=== PATIENT | female | born 1980 | race Caucasian/White ===

== ENCOUNTER 2016-09-20 12:17 | Emergency (ER) | payer MEDICARE, OTHER ==
[~2016-09-20] VITALS: Ht 167.6 cm; Wt 127.8 kg
[~2016-09-20 12:17] MED LIST: SPRI28TA PO
[2016-09-20 12:20] VITALS: BP 159/68; PULSE 68; RESP 18; TEMP 97.9; O2SAT 99
--- NOTE | 2016-09-20 12:59 | PD ---
HPI Chief Complaint: Oral / Dental Pain or Problem Time Seen by Provider: 12:55 Travel History International Travel<30 days: No Contact w/Intl Traveler<30days: No Traveled to known affect area: No History of Present Illness HPI 36-year-old female presents to the emergency room for evaluation of left upper dental pain for the past 3 days. Patient describes pain as throbbing. Worse with eating and drinking. She has applied several home remedies and taken over- the-counter medications without relief in symptoms. She does not have a dentist in the area. Denies drainage, fever, chills, nausea, vomiting. PFSH Past Medical History Medical History: Denies Significant Hx Hx Anticoagulant Therapy: No Cardiovascular Problems: No Chemotherapy: No Cerebrovascular Accident: No Diabetes: No Respiratory: No Tetanus Vaccination: < 5 Years Influenza Vaccination: No ?: Not LMP: Now : 3 Para: 2 Miscarriage: 1 Tubal Ligation: Yes (02/2014) Past Surgical History Section: Yes Gynecologic Surgery: Yes (bilateral tubal ligation) Social History Alcohol Use: No Tobacco Use: No Substance Use: No Allergies-Medications (Allergen,Severity, Reaction): Coded Allergies: Penicillin (Verified Allergy, Severe, Rash, 09/20/16) Reported Meds & Prescriptions Reported Meds & Active Scripts Active No Active Prescriptions or Reported Medications Review of Systems Except as stated in HPI: all other systems reviewed are Neg Physical Exam Narrative GENERAL: Well-nourished, well-developed female in no acute distress. Afebrile. Ambulatory SKIN: Warm and dry. HEAD: Normocephalic. EYES: No scleral icterus. No injection or drainage. DENTAL: No loose or chipped teeth. No malocclusion. Mild erythema with possible drainage of tooth #14. Mild decay throughout. No obvious abscess. No submental, submandibular, or focal induration. No facial edema. NECK: Supple, trachea midline. No JVD or lymphadenopathy. CARDIOVASCULAR: Regular rate and rhythm without murmurs, gallops, or rubs. RESPIRATORY: Breath sounds equal bilaterally. No accessory muscle use. Data Data Last Documented VS Vital Signs Date Time Temp Pulse Resp B/P Pulse Ox O2 Delivery O2 Flow Rate FiO2 09/20/16 12:20 97.9 68 18 159/68 99 MDM Medical Decision Making Medical Screen Exam Complete: Yes Emergency Medical Condition: Yes Medical Record Reviewed: Yes Differential Diagnosis Abscess versus dentalgia versus cavity Narrative Course 36-year-old female presents to the emergency room for evaluation of tooth pain in the left upper jaw for the past 3 days. No systemic signs of infection. Mild erythema with possible drainage of tooth #14. Mild decay throughout. No obvious abscess. No submental, submandibular, or focal induration. No facial edema. Patient given tramadol for pain in the emergency room. Discharged with prescription for clindamycin. Told to follow up with a dentist or return for worsening symptoms. She understands and agrees to plan. Diagnosis Primary Impression: Dental abscess Referrals: Dentist Patient Instructions: Dental Abscess (ED), General Instructions Additional Instructions: Rest and drink plenty of fluids. [place] your teeth twice daily. Take clindamycin as directed, until gone. Follow-up with a dentist. Return to the emergency room for worsening symptoms. Med/Other Pt SpecificInfo: Prescription(s) given Scripts No Active Prescriptions or Reported Meds Disposition: 01 DISCHARGE HOME Condition: Stable Cassandra Rivera September 20, 2016 12:59
[2016-09-20] MEDS ORDERED: traMADol HCL 50 MG TAB PO ONE (13:00)
[2016-09-20] MEDS ORDERED: CLIN1CAP5 PO (13:11)
== END 2016-09-20 13:35 | disposition home or self-care (01) ==
LOC: PHEFT 12:17
DX: K04.7 Periapical abscess without sinus (principal)
CPT/HCPCS: 99282

== ENCOUNTER 2016-10-17 17:38 | Emergency (ER) | payer MEDICARE, OTHER ==
[~2016-10-17] VITALS: Ht 167.6 cm; Wt 129.0 kg
[2016-10-17 17:41] VITALS: BP 163/87; PULSE 81; RESP 15; TEMP 98.1; O2SAT 100
[2016-10-17] MEDS ORDERED: SODIUM CHLOR 0.9% 1000 ML INJ 1,000 ML IV SCH (18:04)
[2016-10-17] MEDS ORDERED: ONDANSETRON HCL 4 MG/2 ML VIAL IVP ONE (18:15)
[2016-10-17] MEDS ORDERED: SODIUM CHLORIDE 0.9% FLUSH 10 ML FLUSH IV FLUSH PRN (18:15)
[2016-10-17] MEDS ORDERED: KETOROLAC TROMETHAMINE 30 MG/ML (IVP) VIAL IVP ONE (18:15)
--- NOTE | 2016-10-17 18:15 | PD ---
HPI Chief Complaint: Abdominal Pain Time Seen by Provider: 17:54 Travel History International Travel<30 days: No Contact w/Intl Traveler<30days: No Traveled to known affect area: No History of Present Illness HPI 36yo F with PMH of morbid obesity presents to the ED with c/o left lower abdominal pain for 3 days. States pain is sharp and relieved when lying down. However, pt is worst with standing and radiates to left back and down left proximal thigh. +Nausea. +Nonbloody diarrhea today. +Vaginal discharge that is white today. Denies any fever, trauma, chest pain, sob, vomiting, dysuria, hematuria, vaginal bleeding, urinary incontinence, focal weakness or numbness. Last bowel movement was today. PSH tubal ligation and . PFSH Past Medical History Hx Anticoagulant Therapy: No Cardiovascular Problems: No Chemotherapy: No Cerebrovascular Accident: No Diabetes: No Respiratory: No ?: Not : 3 Para: 2 Miscarriage: 1 Tubal Ligation: Yes (02/2014) Past Surgical History Section: Yes Gynecologic Surgery: Yes (bilateral tubal ligation) Social History Alcohol Use: No Tobacco Use: No Substance Use: No Allergies-Medications (Allergen,Severity, Reaction): Coded Allergies: Penicillin (Verified Allergy, Severe, Rash, 10/17/16) Reported Meds & Prescriptions Reported Meds & Active Scripts Active Zofran Odt (Ondansetron Odt) 4 Mg Tab 4 Mg SL Q12HR PRN Acetaminophen 500 Mg Tab 500 Mg PO Q6H PRN Macrobid (Nitrofurantoin Monoh/Nitrofur Macro) 100 Mg Cap 100 Mg PO BID 5 Days Review of Systems Except as stated in HPI: all other systems reviewed are Neg Physical Exam Narrative GENERAL: 36yo F in mild distress. SKIN: Focused skin assessment warm/dry. HEAD: Atraumatic. Normocephalic. CARDIOVASCULAR: Regular rate and rhythm. No murmur appreciated. RESPIRATORY: No accessory muscle use. Clear to auscultation. Breath sounds equal bilaterally. GASTROINTESTINAL: Abdomen soft, +TTP suprapubic, left to suprapubic region. No rebound tenderness or guarding. PELVIC: Clear, yellowish mucus discharge. No CMT or adnexal tenderness bilaterally. BACK: No CVA tenderness bilaterally. MUSCULOSKELETAL: No obvious deformities. No clubbing. No cyanosis. No edema. NEUROLOGICAL: Awake and alert. No obvious cranial nerve deficits. Motor grossly within normal limits. Sensation equal bilateral lower ext. Normal speech. Negative straight leg test. PSYCHIATRIC: Appropriate mood and affect; insight and judgment normal. Data Data Last Documented VS Vital Signs Date Time Temp Pulse Resp B/P Pulse Ox O2 Delivery O2 Flow Rate FiO2 10/17/16 19:51 66 16 141/77 100 10/17/16 18:28 Room Air 10/17/16 17:41 98.1 Orders Complete Blood Count With Diff (10/17/16 18:04) Comprehensive Metabolic Panel (10/17/16 18:04) Lipase (10/17/16 18:04) Prothrombin Time / Inr (Pt) (10/17/16 18:04) Act Partial Throm Time (Ptt) (10/17/16 18:04) Urinalysis - C+S If Indicated (10/17/16 18:04) Iv Access Insert/Monitor (10/17/16 18:04) Ecg Monitoring (10/17/16 18:04) Ondansetron Inj (Zofran Inj) (10/17/16 18:15) Sodium Chlor 0.9% 1000 Ml Inj (Ns 1000 M (10/17/16 18:04) Sodium Chloride 0.9% Flush (Ns Flush) (10/17/16 18:15) Ketorolac Inj (Toradol Inj) (10/17/16 18:15) Ed Urine Pregnancytest Poc (10/17/16 18:04) Gc And Chlamydia Pcr (10/17/16 18:15) Wet Prep Profile (10/17/16 18:15) Ed Poc Ultrasound (10/17/16 ) Labs Laboratory Tests Test 10/17/16 10/17/16 10/17/16 18:00 18:17 18:30 Urine Color YELLOW Urine Turbidity CLEAR Urine pH 7.0 Urine Specific [place] 1.018 Urine Protein NEG mg/dL Urine Glucose (UA) NEG mg/dL Urine Ketones NEG mg/dL Urine Occult Blood SMALL Urine Nitrite NEG Urine Bilirubin NEG Urine Leukocyte Esterase TRACE Microscopic Urinalysis Comment CULT NOT INDICATED White Blood Count 8.6 TH/MM3 Red Blood Count 3.89 MIL/MM3 Hemoglobin 10.0 GM/DL Hematocrit 30.9 % Mean Corpuscular Volume 79.3 FL Mean Corpuscular Hemoglobin 25.6 PG Mean Corpuscular Hemoglobin 32.3 % Concent Red Cell Distribution Width 12.2 % Platelet Count 271 TH/MM3 Mean Platelet Volume 8.2 FL Neutrophils (%) (Auto) 71.0 % Lymphocytes (%) (Auto) 20.0 % Monocytes (%) (Auto) 7.3 % Eosinophils (%) (Auto) 1.1 % Basophils (%) (Auto) 0.6 % Neutrophils # (Auto) 6.1 TH/MM3 Lymphocytes # (Auto) 1.7 TH/MM3 Monocytes # (Auto) 0.6 TH/MM3 Eosinophils # (Auto) 0.1 TH/MM3 Basophils # (Auto) 0.1 TH/MM3 CBC Comment DIFF FINAL Differential Comment Prothrombin Time 10.2 SEC Prothromb Time International 0.9 RATIO Ratio Activated Partial 25.2 SEC Thromboplast Time Sodium Level 141 MEQ/L Potassium Level 3.8 MEQ/L Chloride Level 109 MEQ/L Carbon Dioxide Level 26.8 MEQ/L Anion Gap 5 MEQ/L Blood Urea Nitrogen 10 MG/DL Creatinine 0.77 MG/DL Estimat Glomerular Filtration 85 ML/MIN Rate Random Glucose 104 MG/DL Calcium Level 7.9 MG/DL Total Bilirubin 0.3 MG/DL Aspartate Amino Transf 19 U/L (AST/SGOT) Alanine Aminotransferase 26 U/L (ALT/SGPT) Alkaline Phosphatase 78 U/L Total Protein 6.8 GM/DL Albumin 3.3 GM/DL Lipase 238 U/L Clue Cells (Wet Prep) NONE SEEN Vaginal Trichomonas (Wet Prep) NONE SEEN Vaginal Yeast (Wet Prep) NONE SEEN MDM Medical Decision Making Medical Screen Exam Complete: Yes Emergency Medical Condition: Yes Interpretation(s) Vital Signs Date Time Temp Pulse Resp B/P Pulse Ox O2 Delivery O2 Flow Rate FiO2 10/17/16 18:28 54 18 138/74 99 Room Air 10/17/16 17:41 98.1 81 15 163/87 100 Laboratory Tests Test 10/17/16 10/17/16 10/17/16 18:00 18:17 18:30 Urine Color YELLOW (YELLW/STRAW) Urine Turbidity CLEAR (CLEAR) Urine pH 7.0 (5.0-8.5) Urine Specific [place] 1.018 (1.002-1.035) Urine Protein NEG mg/dL (NEG-TRACE) Urine Glucose (UA) NEG mg/dL (NEG) Urine Ketones NEG mg/dL (NEG) Urine Occult Blood SMALL (NEG) Urine Nitrite NEG (NEG) Urine Bilirubin NEG (NEG) Urine Leukocyte Esterase TRACE (NEG) White Blood Count 8.6 TH/MM3 (4.0-11.0) Red Blood Count 3.89 MIL/MM3 (4.00-5.30) Hemoglobin 10.0 GM/DL (11.6-15.3) Hematocrit 30.9 % (35.0-46.0) Mean Corpuscular Volume 79.3 FL (80.0-100.0) Mean Corpuscular Hemoglobin 25.6 PG (27.0-34.0) Mean Corpuscular Hemoglobin 32.3 % Concent (32.0-36.0) Red Cell Distribution Width 12.2 % (11.6-17.2) Platelet Count 271 TH/MM3 (150-450) Mean Platelet Volume 8.2 FL (7.0-11.0) Neutrophils (%) (Auto) 71.0 % (16.0-70.0) Lymphocytes (%) (Auto) 20.0 % (9.0-44.0) Monocytes (%) (Auto) 7.3 % (0.0-8.0) Eosinophils (%) (Auto) 1.1 % (0.0-4.0) Basophils (%) (Auto) 0.6 % (0.0-2.0) Neutrophils # (Auto) 6.1 TH/MM3 (1.8-7.7) Lymphocytes # (Auto) 1.7 TH/MM3 (1.0-4.8) Monocytes # (Auto) 0.6 TH/MM3 (0-0.9) Eosinophils # (Auto) 0.1 TH/MM3 (0-0.4) Basophils # (Auto) 0.1 TH/MM3 (0-0.2) CBC Comment DIFF FINAL Differential Comment Prothrombin Time 10.2 SEC (9.8-11.6) Prothromb Time International 0.9 RATIO Ratio Activated Partial 25.2 SEC Thromboplast Time (24.3-30.1) Sodium Level 141 MEQ/L (136-145) Potassium Level 3.8 MEQ/L (3.5-5.1) Chloride Level 109 MEQ/L (98-107) Carbon Dioxide Level 26.8 MEQ/L (21.0-32.0) Anion Gap 5 MEQ/L (5-15) Blood Urea Nitrogen 10 MG/DL (7-18) Creatinine 0.77 MG/DL (0.50-1.00) Estimat Glomerular Filtration 85 ML/MIN (>89) Rate Random Glucose 104 MG/DL (74-106) Calcium Level 7.9 MG/DL (8.5-10.1) Total Bilirubin 0.3 MG/DL (0.2-1.0) Aspartate Amino Transf 19 U/L (15-37) (AST/SGOT) Alanine Aminotransferase 26 U/L (10-53) (ALT/SGPT) Alkaline Phosphatase 78 U/L (45-117) Total Protein 6.8 GM/DL (6.4-8.2) Albumin 3.3 GM/DL (3.4-5.0) Lipase 238 U/L (73-393) Clue Cells (Wet Prep) NONE SEEN (NONE) Vaginal Trichomonas (Wet Prep) NONE SEEN (NONE) Vaginal Yeast (Wet Prep) NONE SEEN (NONE) Differential Diagnosis Nephrolithiasis vs. pyelonephritis vs. ovarian cyst vs. diverticulitis vs. UTI vs. bacterial vaginosis vs. viral syndrome Narrative Course 36yo F presents to the ED with c/o left lower abdominal pain that radiates to left back. On physical exam, pain is more suprapubic and left of suprapubic region. Labs reviewed, no leukocytosis. H/H low at 10/30.9. Pt has been having prolong menstrual bleeding that has recently stopped and this may be due to that. Creatinine normal. LFT and lipase normal. Wet prep negative. UA showed small occult blood and trace leukocyte. Since pt has suprapubic tenderness, will treat as UTI. Pt given zofran and toradol and reevaluated at bedside. States nausea and pain has resolved. Pt may have had a kidney stone or UTI. US bedside did not show any obstructions in bilateral kidneys. Pt does not want to wait for a transvaginal US to r/o ovarian cysts. States she has appointment with her [facility] as outpatient. Pt tolerating PO. Return precautions given. Procedures Procedure Narrative Emergency department urinary tract ultrasound was performed with patient consent. Curvilinear probe was used in the transverse and sagittal views in the bilateral flank and suprapubic region without evidence of hydronephrosis or urinary retention. Diagnosis Primary Impression: UTI (urinary tract infection) Qualified Code: N39.0 - Urinary tract infection with hematuria, site unspecified Patient Instructions: General Instructions Departure Forms: Tests/Procedures Additional Instructions: Please follow up with your PMD or [facility] in 1-2 days. Return to the ED if symptoms worsen. Med/Other Pt SpecificInfo: Prescription(s) given Scripts Ondansetron Odt (Zofran Odt)4 Mg Tab4 Mg SL Q12HR PRN (Nausea/Vomiting) #6 TAB Ref 0 Prov:Shahida Montoya DO 10/17/16 Acetaminophen 500 Mg [id number] Mg PO Q6H PRN (PAIN SCALE 1 TO 4) #20 TAB Ref 0 Prov:Shahida Montoya DO 10/17/16 Nitrofurantoin Monohydrate Macrocrystals (Macrobid)100 Mg [id number] Mg PO BID 5 Days Ref 0 Prov:Shahida Montoya DO 10/17/16 Shahida Montoya DO Oct 17, 2016 18:15
[2016-10-17 18:26] LABS: AUTOMATED NEUTROPHIL # 6.1 TH/MM3 (1.8-7.7); BASOPHIL # 0.1 TH/MM3 (0-0.2); BASOPHIL % 0.6 % (0.0-2.0); EOSINOPHIL # 0.1 TH/MM3 (0-0.4); EOSINOPHIL % 1.1 % (0.0-4.0); HEMATOCRIT 30.9 % (35.0-46.0); HEMO FLAGS DIFF FINAL; LYMPHOCYTE # 1.7 TH/MM3 (1.0-4.8); MEAN CELL VOLUME 79.3 FL (80.0-100.0); MEAN CORPUSCULAR HEMOGLOBIN 25.6 PG (27.0-34.0); MEAN CORPUSCULAR HGB CONC 32.3 % (32.0-36.0); MONO % 7.3 % (0.0-8.0); PLATELET COUNT 271 TH/MM3 (150-450); RED BLOOD COUNT 3.89 MIL/MM3 (4.00-5.30); RED CELL DISTRIBUTION WIDTH 12.2 % (11.6-17.2); WHITE BLOOD COUNT 8.6 TH/MM3 (4.0-11.0)
[2016-10-17 18:28] VITALS: BP 138/74; PULSE 54; RESP 18; O2SAT 99
[2016-10-17 18:34] LABS: CHLORIDE 109 MEQ/L (98-107); POTASSIUM 3.8 MEQ/L (3.5-5.1); SODIUM (NA) 141 MEQ/L (136-145)
[2016-10-17 18:36] LABS: BLOOD, URINE SMALL (NEG); GLUCOSE,URINE NEG (NEG); KETONE, URINE NEG (NEG); NITRITE,URINE NEG (NEG)
[2016-10-17 18:38] LABS: ANION GAP 5 MEQ/L (5-15); BICARBONATE 26.8 MEQ/L (21.0-32.0)
[2016-10-17 18:39] LABS: BLOOD UREA NITROGEN 10 MG/DL (7-18)
[2016-10-17 18:40] LABS: APTT (PATIENT) 25.2 SEC (24.3-30.1); INTERNATIONAL NORMALIZED RATIO 0.9 RATIO; PROTHROMBIN TIME - PATIENT 10.2 SEC (9.8-11.6)
[2016-10-17 18:41] LABS: ALT (GPT) 26 U/L (10-53); AST (GOT) 19 U/L (15-37)
[2016-10-17 18:42] LABS: GLOMERULAR FILTRATION RATE 85 ML/MIN (>89)
[2016-10-17 18:43] LABS: TOTAL BILIRUBIN ADULT 0.3 MG/DL (0.2-1.0)
[2016-10-17 18:44] LABS: ALKALINE PHOSPHATASE 78 U/L (45-117)
[2016-10-17 19:01] LABS: URINE COLOR YELLOW (YELLW/STRAW)
[2016-10-17] MEDS ORDERED: ACET500T3 PO (19:40)
[2016-10-17] MEDS ORDERED: ZOFR4TAB3 SL (19:40)
[2016-10-17] MEDS ORDERED: MACR100C2 PO (19:40)
[2016-10-17 19:50] VITALS: RESP 15
[2016-10-17 19:51] VITALS: BP 141/77
[2016-10-17 21:22] LABS: COMMENT (UR) CULT NOT INDICATED; CULTURE IF INDICATED CULT NOT INDICATED
[2016-10-18 02:08] LABS: CHLAMYDIA PCR NOT DETECTED (NOT DETECT); NEISSERIA PCR NOT DETECTED (NOT DETECT)
== END 2016-10-17 20:06 | disposition home or self-care (01) ==
LOC: PHED 17:38
DX: N39.0 Urinary tract infection, site not specified (principal); R31.9 Hematuria, unspecified
CPT/HCPCS: 80053; 81001; 83690; 84703; 85025; 85610; 85730; 87210; 87491; 87591; 96361; 96374; 96375; 99284; J1885; J2405; J7030

== ENCOUNTER 2016-11-28 13:11 | Emergency (ER) | payer MEDICARE, OTHER ==
[~2016-11-28] VITALS: Ht 167.6 cm; Wt 131.4 kg
[~2016-11-28 13:11] MED LIST changes: +ACET500T3 PO; +MACR100C2 PO; -SPRI28TA PO; +ZOFR4TAB3 SL
[2016-11-28 13:20] VITALS: BP 119/76; PULSE 84; RESP 18; TEMP 98.2; O2SAT 99
--- NOTE | 2016-11-28 13:44 | PD ---
Physical Exam Time Seen by Provider: 13:42 Narrative 36 y/o female here with R knee pain after a fall. Vital signs reviewed. Seen at triage desk. Awaiting bed placement. Data Data Last Documented VS Vital Signs Date Time Temp Pulse Resp B/P Pulse Ox O2 Delivery O2 Flow Rate FiO2 11/28/16 13:20 98.2 84 18 119/76 99 Room Air [facility] Medical Record Reviewed: Yes Supervised Visit with BETH: No Fredrick Flores Nov 28, 2016 13:44
--- NOTE | 2016-11-28 14:56 | PD ---
HPI Chief Complaint: Injury Time Seen by Provider: 14:56 Travel History International Travel<30 days: No Contact w/Intl Traveler<30days: No Traveled to known affect area: No History of Present Illness HPI 36-year-old female presents to emergency department for evaluation right knee pain. Patient had a trip and fall on the stairs, landing directly on her right knee. Reports moderate anterior right knee pain, rating it a 6 out of 10. Pain is exacerbated with flexion. No alteration to sensation. She did not strike her head or lose consciousness. No other symptoms to report. She has taken 2 Aleve prior to arrival. PFS Past Medical History Hx Anticoagulant Therapy: No Cardiovascular Problems: No Chemotherapy: No Cerebrovascular Accident: No Diabetes: No Diminished Hearing: No Respiratory: No Immunizations Current: Yes ?: Not LMP: 11/28/16 : 3 Para: 2 Miscarriage: 1 Dilation and Curettage (D&C): Yes Tubal Ligation: Yes (02/2014) Past Surgical History Section: Yes Gynecologic Surgery: Yes (bilateral tubal ligation) Oral Surgery: Yes (TOOTH) Social History Alcohol Use: No Tobacco Use: No Substance Use: No Allergies-Medications (Allergen,Severity, Reaction): Coded Allergies: Penicillin (Verified Allergy, Severe, Rash, 11/28/16) Reported Meds & Prescriptions Reported Meds & Active Scripts Active Zofran Odt (Ondansetron Odt) 4 Mg Tab 4 Mg SL Q12HR PRN Acetaminophen 500 Mg Tab 500 Mg PO Q6H PRN Macrobid (Nitrofurantoin Monoh/Nitrofur Macro) 100 Mg Cap 100 Mg PO BID 5 Days Review of Systems Except as stated in HPI: all other systems reviewed are Neg Physical Exam Narrative GENERAL: Well-nourished, well-developed female patient, ambulatory no acute distress SKIN: Focused skin assessment warm/dry. Abrasion on the anterior right knee HEAD: Normocephalic. EYES: No scleral icterus. No injection or drainage. NECK: Supple, trachea midline. No JVD or lymphadenopathy. CARDIOVASCULAR: Regular rate and rhythm without murmurs, gallops, or rubs. RESPIRATORY: Breath sounds equal bilaterally. No accessory muscle use. MUSCULOSKELETAL: No cyanosis, or edema. Patient has full flexion-extension the right knee. Reports pain with palpation of the patella of the right knee. No obvious deformities. BACK: Nontender without obvious deformity. No CVA tenderness. Data Data Last Documented VS Vital Signs Date Time Temp Pulse Resp B/P Pulse Ox O2 Delivery O2 Flow Rate FiO2 11/28/16 13:20 98.2 84 18 119/76 99 Room Air Orders Knee, Complete (4vws) (11/28/16 ) MDM Medical Decision Making Medical Screen Exam Complete: Yes Emergency Medical Condition: Yes Medical Record Reviewed: Yes Differential Diagnosis Contusion versus fracture versus sprain versus dislocation Narrative Course 36 year female presents to emergency department for evaluation right knee injury. Patient appears without distress. The right knee is without deformity. Patient reports pain with palpation of the anterior aspect of the right knee. X-ray imaging is ordered. Patient treated for pain prior to arrival. X-ray imaging is without acute concern. She'll be discharged home with pain control. She agrees to return immediately with any acute worsening of symptoms. Diagnosis Primary Impression: Right knee injury Qualified Code: S89.91XA - Right knee injury, initial encounter Referrals: Primary Care Physician Patient Instructions: General Instructions, Knee Pain (ED) Additional Instructions: Ice and elevate to reduce pain [place] wrap for compression and comfort Follow-up with the primary care provider Return immediately with any acute worsening symptoms Med/Other Pt SpecificInfo: Prescription(s) given Scripts Ibuprofen 600 Mg [id number] Mg PO Q8HR PRN (PAIN) #30 TAB Ref 0 Prov:Marti Chavarria 11/28/16 Disposition: 01 DISCHARGE HOME Condition: Stable Marti Chavarria Nov 28, 2016 14:56
[2016-11-28] MEDS ORDERED: IBUP-232 PO (16:14)
--- NOTE | 2016-11-28 16:35 | RADRPT ---
EXAM DATE/TIME: 11/28/2016 15:54 [facility] COMPARISON: No previous studies available for comparison. INDICATIONS : Right knee pain after falling today. MEDICAL HISTORY : None. SURGICAL HISTORY : None. ENCOUNTER: Initial ACUITY: 1 day PAIN SCORE: 7/10 LOCATION: Right anterior knee. FINDINGS: No definite fractures, or dislocations are identified. No definite lytic or sclerotic lesion is seen . The joint spaces are well maintained. CONCLUSION: Unremarkable study. Zandra Zarate MD on November 28, 2016 at 16:33 Board Certified Radiologist. This report was verified electronically.
== END 2016-11-28 16:45 | disposition home or self-care (01) ==
LOC: NEPK 13:11
DX: S89.91XA Unspecified injury of right lower leg, initial encounter (principal); W10.9XXA Fall (on) (from) unspecified stairs and steps, initial encounter; Z88.0 Allergy status to penicillin; Z79.899 Other long term (current) drug therapy
CPT/HCPCS: 73564; 99283